=== PATIENT | female | born 1985 | race Caucasian/White ===

== ENCOUNTER → 2017-08-22 | Outpatient (CLI) | payer OTHER | END | disposition home or self-care (01) | LOC: LABWHC1 11:38 | PROVIDERS: ATTEND Obstetrics & Gynecology | DX: N92.5 Other specified irregular menstruation (principal) | CPT/HCPCS: 36415; 84702 ==

== ENCOUNTER 2018-04-12 23:37 | Inpatient (IN) | payer OTHER ==
[2018-04-13] MEDS ORDERED: METHYLERGONOVINE 0.2 MG/ML 1 ML AMP IM PRN (00:07)
[2018-04-13] MEDS ORDERED: CARBOPROST TROMETHAMINE 250 MCG/ML 1 ML AMP IM PRN (00:07)
[2018-04-13] MEDS ORDERED: OXYTOCIN 10 UNIT/ML 1 ML VIAL IM PRN (00:07)
[2018-04-13] MEDS ORDERED: LIDOCAINE 1% (PF) 10 MG/ML (30 ML SDV) SQ PRN (00:07)
[2018-04-13] MEDS ORDERED: TERBUTALINE 1 MG/ML VIAL SQ PRN (00:07)
[2018-04-13] MEDS ORDERED: PENICILLIN G POTASSIUM 5,000,000 UNIT in DEXTROSE 5% IN WATER 100 ML IVPB STA ×2 (00:08)
[2018-04-13 00:35] VITALS: BMI 27.8
[2018-04-13] MEDS: LACTATED RINGERS 1,000 ML IV SCH ×2 (00:38→01:20)
[2018-04-13 00:51] LABS: Basophils % (A) 0 %; Eosinophils # (A) 0.1 k/uL (0-0.7); Eosinophils % (A) 1 %; HCT 34.5 % (34.0-46.0); HGB 11.4 gm/dL (11.4-16.0); Lymphocytes # (A) 2.1 k/uL (1.0-4.8); Lymphocytes % (A) 16 %; MCH 25.7 pg (25.0-35.0); MCHC 33.1 g/dL (31.0-37.0); MCV 77.8 fL (80.0-100.0); Mean Platelet Volume 8.1; Microcytosis Slight; Monocytes # (A) 0.5 k/uL (0-1.0); Monocytes % (A) 3 %; Neutrophils # (A) 10.6 k/uL (1.3-7.7); Neutrophils % (A) 79 %; Platelet Count 266 k/uL (150-450); RBC 4.44 m/uL (3.80-5.40); RDW 15.7 % (11.5-15.5); WBC 13.5 k/uL (3.8-10.6)
[2018-04-13] MEDS ORDERED: ROPIVACAINE 100 MG, fentaNYL (PF) 200 MCG in SODIUM CHLORIDE 0.9% 76 ML EPIDURAL ONE (01:40)
--- NOTE | 2018-04-13 02:32 | P.HPOB ---
History of Present Illness H&P Date: 04/13/18 Chief Complaint: Strong regular uterine contractions This is a 33-year-old white female 2 para 2002, status post twin delivery. Patient presents with a EDC of 04/23/2018 at 40 weeks gestation in active spontaneous labor. Fetus is been active throughout the . She denies fluid leakage or vaginal bleeding. Past surgical history significant for low transverse section for twins in 2014. Cervical cerclage 2014. Hysterosalpingogram and uterine septum resection in the past. Exploratory laparoscopy 2015. Past medical history significant for arcuate uterus, endometriosis, fibroid uterus. Current medications Zofran as needed, Prometrium 200 Mg at at Bedtime, Jimena Injections through 36 Weeks' Gestation, Vitamin Daily. ALLERGIES include erythromycin to which reports trouble breathing and sulfa to which reports heavy periods. Family history significant for thyroid disorder and hypercholesterolemia. Social history patient is a woman, never been a smoker, no history of drug or alcohol use. history is significant for blood type O positive, rubella status immune. VDRL testing, urine culture, hepatitis B surface antigen, gonorrhea and chlamydia cultures all negative. Group B strep cultures positive. On exam this is a pleasant white female, she is 5 foot 5 inches, 167 pounds, blood pressure 121/65. Vital signs are stable and she is afebrile. Gen. physical exam is within normal limits. Epidural has been placed per her request. Cervix is 9 cm dilated, 100% effaced, 0 station, vertex presentation. Artificial amniorrhexis reveals thin meconium-stained fluid. heart rate is consistent with reactive NST. Impression: 40 week intrauterine , planning , active spontaneous labor, thin meconium-stained fluid, thin meconium-stained fluid all other signs reassuring. Plan: Continue close maternal and surveillance. Anticipate normal spontaneous vaginal delivery and successful . 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 Past Anesthesia/Blood Transfusion Reactions: No Reported Reaction Additional Past Anesthesia/Blood Transfusion Reaction / Comment(s): CURRENTLY IS HAVE NAUSEA Past Psychological History: Anxiety Smoking Status: Never smoker Past Alcohol Use History: None Reported Past Drug Use History: None Reported - Past Family History Mother Family Medical History: No Reported History Medications and Allergies Home Medications Medication Instructions Recorded Confirmed Type No Known Home Medications 04/12/18 04/12/18 History Allergies Allergy/AdvReac Type Severity Reaction Status Date / Time erythromycin base Allergy Rapid Verified 04/12/18 23:49 Heart Rate Sulfa (Sulfonamide Allergy REDUCED Verified 07/23/15 23:39 Antibiotics) CLOTTIN ABILITY Exam Vital Signs Temp Pulse Resp BP Pulse Ox 04/13/18 00:06 96.9 F L 93 16 114/75 100 04/12/18 23:58 96.3 F L 73 16 121/65 100 Intake and Output 04/12/18 04/12/18 04/13/18 14:59 22:59 06:59 Other: Weight 75.75 kg C exam under HPI please Results Result Diagrams: 04/13/18 00:35 Abnormal Lab Results - Last 24 Hours (Table) 04/13/18 Range/Units 00:35 WBC 13.5 H (3.8-10.6) k/uL MCV 77.8 L (80.0-100.0) fL RDW 15.7 H (11.5-15.5) % Neutrophils # 10.6 H (1.3-7.7) k/uL Assessment and Plan Assessment: Active spontaneous labor, planning , thin meconium-stained fluid Plan: Continue close maternal and surveillance. Anticipate normal spontaneous vaginal delivery, successful . Time with Patient: Less than 30
--- NOTE | 2018-04-13 04:46 | P.PROBDLV ---
Vaginal Delivery Note - . Vaginal Delivery Note: This is a 33-year-old white female 2 para 2001, status post for twins, EDC 04/13/2018 at 40 weeks gestation. Patient presented in active spontaneous labor. is remarkable for blood type O positive, group B strep cultures positive, rubella status immune. Please see dictated history and physical for details. Patient was admitted, artificial amniorrhexis revealed thin meconium-stained fluid. Epidural was placed per her request. She progressed to the first stage of labor and became completely dilated at 0240 which time she began the second stage of labor. Patient progressed through the second stage of labor with slow and steady progress. Ultimately the perineal body was prepped and draped in usual sterile fashion. 's head delivered occiput anterior and he restituted accordingly. There was no nuchal cord noted. The oropharynx, external nares, and nasopharynx were all thoroughly suctioned with the bulb suction. Patient was officially delivered of a liveborn male infant at 0400 hrs. The umbilical cord was doubly clamped and ligated, he was handed to waiting nurses for evaluation where scores of 9 and 9 at one and 5 minutes respectively were given. Infant weighed 3540 g or 7 lbs. 13 oz. The placenta delivered spontaneously, it was inspected and noted to be intact with trivascular cord at 0402 hrs. At this time the perineal body was redraped. Inspection of the cervix, vagina, perineum, periurethral, and perirectal areas revealed a right vaginal sidewall sulcal tear. Patient's position was changed, additional staff was called and additional lighting was obtained. The tear was evaluated in its entirety, the apex grasped gently with an Allis clamp. It is repaired in a running locking stitch of 3-0 Vicryl. In addition there is a second-degree perineal midline laceration that is also repaired in the usual action. Good reapproximation is noted. Rectal exam reveals smooth mucosa and good sphincter tone. The bladder is drained for 300 mL of clear urine. The fundus is firm and in the midline, symmetric and 18 week size. All sponge needle and enhancement counts are correct. The patient, her and family are allowed to begin the bonding experience in the LDR. They are requesting circumcision further son.
[2018-04-13] MEDS: PENICILLIN G POTASSIUM 2,500,000 UNIT in DEXTROSE 5% IN WATER 100 ML IVPB SCH ×4 (05:19→08:42)
[2018-04-13] MEDS ORDERED: diphenhydrAMINE 50 MG/ML 1 ML VIAL IVP PRN ×2 (05:30)
[2018-04-13] MEDS ORDERED: LANOLIN CREAM 5 GM TUBE TOPICAL PRN (05:30)
[2018-04-13] MEDS ORDERED: ZOLPIDEM 5 MG TAB PO PRN (05:30)
[2018-04-13] MEDS ORDERED: ACETAMINOPHEN TAB 325 MG TAB PO PRN (05:30)
[2018-04-13] MEDS ORDERED: diphenhydrAMINE 50 MG CAP PO PRN (05:30)
[2018-04-13] MEDS ORDERED: WITCH HAZEL 1 EACH MED..PAD TOPICAL PRN (05:30)
[2018-04-13] MEDS ORDERED: BENZOCAINE/MENTHOL SPRAY 1 GM/SPRAY AEROSOL TOPICAL PRN (05:30)
[2018-04-13] MEDS ORDERED: diphenhydrAMINE 25 MG CAP PO PRN (05:30)
[2018-04-13] MEDS ORDERED: HYDROCORTISONE 2.5% RECTAL CREAM 30 GM TUBE RECTAL PRN (05:30)
[2018-04-13] MEDS: IBUPROFEN 600 MG TAB PO PRN ×3 (06:19→22:01)
[2018-04-13] MEDS ORDERED: OXYTOCIN 20 UNITS/1000 ML NS 1,000 ML IV SCH (07:45)
[2018-04-13] MEDS: SIMETHICONE 80 MG CHEWABLE PO PRN (09:01)
[2018-04-13] MEDS ORDERED: ACETAMINOPHEN IV (For NPO) 1,000 MG in EMPTY BAG 1 BAG IVPB ONE (09:15)
[2018-04-13] MEDS ORDERED: ONDANSETRON 4 MG/2 ML VIAL IVP PRN (09:58)
[2018-04-13] MEDS: SENNOSIDES-DOCUSATE SODIUM 1 EACH TAB PO SCH ×2 (11:14→19:56)
[2018-04-13 20:52] VITALS: RESP 16
[2018-04-14 07:25] LABS: Basophils % (A) 0 %; Eosinophils # (A) 0.1 k/uL (0-0.7); Eosinophils % (A) 1 %; HCT 26.2 % (34.0-46.0); Hypochromasia Slight; Lymphocytes # (A) 2.3 k/uL (1.0-4.8); Lymphocytes % (A) 19 %; MCH 26.1 pg (25.0-35.0); MCHC 32.4 g/dL (31.0-37.0); MCV 80.5 fL (80.0-100.0); Mean Platelet Volume 7.4; Monocytes # (A) 0.3 k/uL (0-1.0); Monocytes % (A) 3 %; Neutrophils # (A) 9.2 k/uL (1.3-7.7); Neutrophils % (A) 76 %; Platelet Count 201 k/uL (150-450); RBC 3.25 m/uL (3.80-5.40)
[2018-04-14 07:27] LABS: HGB 8.5 gm/dL (11.4-16.0)
--- NOTE | 2018-04-14 08:30 | P.DS ---
Providers Date of admission: 04/13/18 00:01 Expected date of discharge: 04/14/18 Attending physician: Sharlene Bueno Primary care physician: Sharlene Bueno [facility] Course: This is a 31-year-old white female 2 para 2002, status post section for twins, EDC 04/13/2018 at 40 weeks gestation. Patient presented in active spontaneous labor. was unremarkable, blood type O+, rubella status immune, positive group B strep cultures noted. Please see dictated history and physical for details. Artificial amniorrhexis revealed thin meconium-stained fluid. Oxytocin was started and titrated per hospital protocol. She went on to deliver a liveborn male infant with scores of 9 and 9 at one and 5 minutes respectively. Infant weighed 7 lbs. 13 oz. or 3540 g. Patient sustained a right vaginal sidewall sulcal tear, this is repaired with good exposure using 3-0 Vicryl suture. Rectal exam reveals good sphincter tone and intact mucosa. Total estimated blood loss 500 mL's. Please see dictated delivery note for details. the patient did well. This morning she is voiding, ambulating and passing flatus without difficulty. Fundus is firm and in the midline, symmetric and 18 week size. Extremities are negative for edema. Breasts are not engorged. infant has been circumcised. Pain is well-controlled with ibuprofen products. Patient is judged to be in good condition for discharge home. She will follow- up with me in the office in 6 weeks. I have reminded her no intercourse, tampons or douching. She will use [id number] Advil or Motrin as needed for pain, 200 mg Motrin pills every 6 hours as needed. She will call me with any fevers shakes or chills, foul smelling or copious lochia, with the passage of large blood clots, with pain is alleviated by [id number] products, or indeed with any concerns. 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 Successful VBACs noted. Patient Condition at Discharge: Good Plan - Discharge Summary New Discharge Prescriptions: No Action No Known Home Medications Discharge Medication List No Known Home Medications 04/12/18 [History] Follow up Appointment(s)/Referral(s): Sharlene Bueno MD [Primary Care Provider] - 6 Weeks Discharge Disposition: HOME SELF-CARE
[2018-04-14 09:07] VITALS: BP 123/81; PULSE 90; TEMP 98.3
[2018-04-14] MEDS: SENNOSIDES-DOCUSATE SODIUM 1 EACH TAB PO SCH (09:51)
[2018-04-14] MEDS: SIMETHICONE 80 MG CHEWABLE PO PRN (09:52)
[2018-04-14] MEDS: IBUPROFEN 600 MG TAB PO PRN (09:56)
== END 2018-04-14 15:50 | disposition home or self-care (01) | DRG 775 ==
LOC: FBPOP 23:37 → 4FBP 04-13 00:01
PROVIDERS: ADMIT Obstetrics & Gynecology; ATTEND Obstetrics & Gynecology
PROC: 00HU33Z Insertion of Infusion Device into Spinal Canal, Percutaneous Approach (ICD-10-PCS; principal; 2018-04-13)
PROC: 0KQM0ZZ Repair Perineum Muscle, Open Approach (ICD-10-PCS; principal; 2018-04-13)
PROC: 0UQGXZZ Repair Vagina, External Approach (ICD-10-PCS; principal; 2018-04-13)
PROC: 10E0XZZ Delivery of Products of Conception, External Approach (ICD-10-PCS; principal; 2018-04-13)
PROC: 10907ZC Drainage of Amniotic Fluid, Therapeutic from Products of Conception, Via Natural or Artificial Opening (ICD-10-PCS; principal; 2018-04-13)
PROC: 3E0R3NZ Introduction of Analgesics, Hypnotics, Sedatives into Spinal Canal, Percutaneous Approach (ICD-10-PCS; principal; 2018-04-13)
DX: O48.0 Post-term pregnancy (principal); Z37.0 Single live birth; O77.0 Labor and delivery complicated by meconium in amniotic fluid; O34.211 Maternal care for low transverse scar from previous cesarean delivery; N85.8 Other specified noninflammatory disorders of uterus; O34.03 Maternal care for unspecified congenital malformation of uterus, third trimester; Z3A.40 40 weeks gestation of pregnancy; O99.824 Streptococcus B carrier state complicating childbirth; Z88.1 Allergy status to other antibiotic agents; Z88.2 Allergy status to sulfonamides; O70.1 Second degree perineal laceration during delivery
CPT/HCPCS: 59025; 85025; 99213

== ENCOUNTER → 2023-06-17 | Outpatient (CLI) | payer OTHER ==
--- NOTE | 2023-06-17 10:26 | XR ---
EXAMINATION TYPE: XR cervical spine limited DATE OF EXAM: 06/17/2023 COMPARISON: NONE HISTORY: Pain TECHNIQUE: 3 views are submitted. FINDINGS: The odontoid is intact. There are no compression deformities. The prevertebral soft tissue structur es are within normal limits. Vertebral body height and disc interspace maintained. IMPRESSION: 1. No acute process.
== END | disposition home or self-care (01) ==
LOC: RADXRMAIN 09:52
PROVIDERS: ATTEND Family Medicine
DX: R51.9 Headache, unspecified (principal)
CPT/HCPCS: 72040